=== PATIENT | female | born 1935 | race Caucasian/White ===

== ENCOUNTER 2019-05-12 13:36 | Emergency (ER) | payer BC ==
[~2019-05-12] VITALS: Ht 177.8 cm; Wt 70.8 kg
--- NOTE | 2019-05-12 13:57 | NUR ---
CAME IN FOR PAIN AND SWELLING TO LEFT WRIST S/P GLF YESTERDAY, TO ER BED 6, HOOKED TO MONITOR, CHANGED TO HOSP GOWN, AWAITING MD HAIRSTON.
--- NOTE | 2019-05-12 14:58 | NUR ---
DR ESTES AT BEDSIDE
[2019-05-12] MEDS ORDERED: CEFAZOLIN 1 GM VIAL IM ONE (15:00)
[2019-05-12] MEDS ORDERED: HYDROCODONE/APAP 5/325MG 1 EACH TABLET PO ONE ×2 (15:00→16:00)
[2019-05-12] MEDS ORDERED: TDAP [DIPH/PERTUSSIS/TET] 0.5 ML VIAL IM ONE ×2 (15:00→15:17)
[2019-05-12 15:16] LABS: BASOPHILS # (AUTO) 0.1 /CMM (0.0-0.2); BASOPHILS % (AUTO) 1.3 % (0.0-2.0); HEMATOCRIT 41 % (33-45); HEMOGLOBIN 13.6 g/dL (11.5-14.8); LYMPHOCYTES # (AUTO) 1.5 /CMM (0.8-4.8); LYMPHOCYTES % (AUTO) 14.6 % (20.0-44.0); MEAN CORPUSCULAR HGB CONC 33 g/dl (31.0-36.0); MEAN CORPUSCULAR VOLUME 90 fL (82-100); MONOCYTES # (AUTO) 0.9 /CMM (0.1-1.30); MONOCYTES % (AUTO) 8.4 % (2.0-12.0); NEUTROPHILS # (AUTO) 7.7 /CMM (1.8-8.9); NEUTROPHILS % (AUTO) 73.7 % (43.0-81.0); PLATELET COUNT (AUTO) 251 /CMM (150-450); RED BLOOD CELL COUNT(AUTO) 4.55 MIL/uL (4.0-5.2); WHITE BLOOD COUNT (AUTO) 10.4 K/uL (4.3-11.0)
[2019-05-12] MEDS ORDERED: HYDROCODONE/APAP 5/325MG 1 EACH TABLET ONE ×2 (15:17→16:05)
[2019-05-12 15:25] LABS: CARBON DIOXIDE 23 mmol/L (21-32); CHLORIDE 99 mmol/L (98-107); GLUCOSE 222 mg/dL (74-106); POTASSIUM 3.4 mmol/L (3.5-5.1); SODIUM SERUM 132 mmol/L (136-145); UREA NITROGEN, BLOOD 18 mg/dL (7-18)
[2019-05-12] MEDS ORDERED: CEFAZOLIN 1 GM in IV D5W 50 ML IV ONE (15:30)
--- NOTE | 2019-05-12 16:12 | NUR ---
IV removed. Catheter intact and site benign. Pressure and 4x4 applied to site. No bleeding noted.Patient discharged to home in stable condition. Written and verbal after care instructions given. Patient verbalizes understanding of instruction.
[2019-05-12 16:14] VITALS: BP 138/56
--- NOTE | 2019-05-12 16:20 | NUR ---
APPLIED L ARM SLING AND L HAND WRIST SPLINT
== END 2019-05-12 16:15 | disposition home or self-care (01) ==
LOC: ER 13:48
DX: M25.532 Pain in left wrist (principal); R22.32 Localized swelling, mass and lump, left upper limb; I10 Essential (primary) hypertension; E11.9 Type 2 diabetes mellitus without complications; M81.0 Age-related osteoporosis without current pathological fracture; Z95.0 Presence of cardiac pacemaker; Z98.890 Other specified postprocedural states; Z60.2 Problems related to living alone; W01.0XXA Fall on same level from slipping, tripping and stumbling without subsequent striking against object, initial encounter; Y93.89 Activity, other specified; Y92.89 Other specified places as the place of occurrence of the external cause; Y99.8 Other external cause status
CPT/HCPCS: 29125; 36415; 73110; 80048; 83605; 85025; 87040 ×2; 90471; 90715; 96365; 99284; J0690 ×2; J7060